=== PATIENT | female | born 1985 | race African-American/Black ===

== ENCOUNTER 2017-12-22 16:17 | Emergency (ER) | payer OTHER ==
[2017-12-22 16:29] VITALS: BP 105/74; PULSE 100; TEMP 99.1; BMI 32.5
--- NOTE | 2017-12-22 18:12 | PDOC ---
History of Present Illness - General Chief Complaint: Injury Stated Complaint: LEFT HAND INJURY Time Seen by Provider: 12/22/17 18:11 History Source: Patient Exam Limitations: No Limitations - History of Present Illness Initial Comments: 12/22/17 19:44 32 yo F comes in c/o L 4th finger injury after hitting it on the ground accidentally, denies any head injury, no LOC, no pain/injury anywhere else. No numbness/tingling, no weakness, no sensory deficits, no wrist/hand pain, no skin breaks, no other complaints today Past History - Past Medical History Allergies/Adverse Reactions: Allergies Allergy/AdvReac Type Severity Reaction Status Date / Time No Known Allergies Allergy Verified 12/22/17 16:25 Home Medications: Ambulatory Orders NK [No Known Home Medication] 12/22/17 COPD: No - Suicide/Smoking/Psychosocial Hx Smoking History: Current every day smoker Have you smoked in the past 12 months: Yes Number of Cigarettes Smoked Daily: 10 Information on smoking cessation initiated: Yes 'Breaking Loose' booklet given: 12/22/17 Hx Alcohol Use: No Drug/Substance Use Hx: No Substance Use Type: None Review of Systems - Review of Systems Able to Perform ROS?: Yes Constitutional: No: Chills, Fever, Malaise, Night Sweats HEENTM: No: Eye Pain, Recent change in vision, Throat Pain Respiratory: No: Cough, Shortness of Breath Cardiac (ROS): No: Chest Pain, Palpitations, Chest Tightness ABD/GI: No: Diarrhea, Nausea, Vomiting, Abdominal cramping : No: Dysuria, Hematuria Musculoskeletal: No: Back Pain Integumentary: No: Rash Neurological: No: Headache, Numbness, Dizziness Psychiatric: No: Change in Appetite Endocrine: No: Unexplained Weight Loss *Physical Exam - Vital Signs Last Vital Signs Temp Pulse Resp BP Pulse Ox 99.1 F 100 H 18 105/74 100 12/22/17 16:26 12/22/17 16:26 12/22/17 16:26 12/22/17 16:26 12/22/17 16:26 - Physical Exam General Appearance: Yes: Nourished. No: Apparent Distress HEENT: positive: RADHA, Normal Voice. negative: Pale Conjunctivae, Scleral Icterus (R), Scleral Icterus (L) Neck: positive: Supple. negative: Decreased range of motion Respiratory/Chest: negative: Respiratory Distress, Accessory Muscle Use Cardiovascular: positive: Regular Rhythm, Regular Rate Musculoskeletal: positive: Normal Inspection. negative: Decreased Range of Motion Extremity: positive: Normal Capillary Refill, Other (L 4th finger with diffuse swelling, and purplish discoloration, (+)tenderness to middle phalanx, FROM at 4th MCP and DIP actively and against resistance. Able to range at PIP but limited due to pain. normal cap refill, subjective numbness at middle phalanx volarly, full sensory function otherwise). negative: Pedal Edema Integumentary: positive: Normal Color, Dry. negative: Jaundice, Rash Neurologic: positive: Fully Oriented, Alert, Normal Mood/Affect Procedures - Splinting Splint Location: Left: Finger (4th) Pre-Proc Neuro Vasc Exam: normal Pre-Made Type: metal Splint Type: Yes: Finger Post-Proc Neuro Vasc Exam: normal Medical Decision Making - Medical Decision Making 12/22/17 19:57 32 yo F w/ L 4th finger injury. Xray done and shows a fracture of the middle phalanx, non displaced. Pt placed in a FInger splint. She will follow up with ortho/hand this week. Return for worsening/concerning symtpoms including numbness/tingling/weakness... *DC/Admit/Observation/Transfer Diagnosis at time of Disposition: Finger fracture, left Qualifiers: Encounter type: initial encounter Finger: ring finger Fracture type: closed Phalanx: middle - Discharge Dispostion Disposition: HOME Condition at time of disposition: Stable Decision to Admit order: No - Referrals Referrals: Garcia Green MD [Staff Physician] - - Patient Instructions Additional Instructions: Keep the splint on at all times and call on Sunday to make an appointment with the hand surgeon. Return for worsening/concerning symptoms including numbness/ tingling/weakness/change in skin color/temperature - Post Discharge Activity
[2017-12-22] MEDS ORDERED: ACETAMINOPHEN 325 MG TABLET (FP) PO ONE (18:15)
[2017-12-22] MEDS ORDERED: ACETAMINOPHEN 325 MG TABLET (FP) ONE (18:17)
== END 2017-12-22 19:44 | disposition home or self-care (01) ==
LOC: JERFT 16:17
PROC: 2W3KX1Z Immobilization of Left Finger using Splint (ICD-10-PCS; principal; 2017-12-22)
DX: S62.655A Nondisplaced fracture of middle phalanx of left ring finger, initial encounter for closed fracture (principal); W03.XXXA Other fall on same level due to collision with another person, initial encounter; Y93.89 Activity, other specified; Y92.89 Other specified places as the place of occurrence of the external cause; Y99.8 Other external cause status
CPT/HCPCS: 29130; 73140-TC-LT-FY; 99281-25

== ENCOUNTER 2018-08-09 16:03 | Emergency (ER) | payer OTHER | END 2018-08-09 16:38 | disposition home or self-care (01) | LOC: JERFT 16:03 ==

== ENCOUNTER 2018-08-18 14:47 | Emergency (ER) | payer SELFPAY, OTHER | END 2018-08-18 16:05 | disposition home or self-care (01) | LOC: JER 14:47 → JERFT 16:05 ==

== ENCOUNTER 2020-06-11 12:08 | Emergency (ER) | payer OTHER ==
[2020-06-11 12:18] VITALS: BP 136/88; PULSE 77; TEMP 98.6; BMI 32.1
[2020-06-11] MEDS ORDERED: KETOROLAC TROMETHAMINE 60 MG/2 ML VIAL IM ONE (12:54)
[2020-06-11] MEDS ORDERED: KETOROLAC TROMETHAMINE 30 MG/1 ML VIAL IM ONE (12:55)
[2020-06-11] MEDS ORDERED: KETOROLAC TROMETHAMINE 30 MG/1 ML VIAL ONE (12:56)
== END 2020-06-11 13:02 | disposition home or self-care (01) ==
LOC: JERFT 12:08
PROC: 3E0233Z Introduction of Anti-inflammatory into Muscle, Percutaneous Approach (ICD-10-PCS; principal; 2020-06-11)
DX: K02.9 Dental caries, unspecified (principal); K08.89 Other specified disorders of teeth and supporting structures
CPT/HCPCS: 99284-25

== ENCOUNTER 2021-01-14 14:45 | Emergency (ER) | payer OTHER ==
[2021-01-14 15:05] VITALS: BP 124/88; PULSE 78; TEMP 98; BMI 33.8
[2021-01-14 16:11] LABS: CHLORIDE 108 mmol/L (98-107); SODIUM 142 mmol/L (136-145)
[2021-01-14 16:13] LABS: CALCIUM 8.7 mg/dL (8.5-10.1)
[2021-01-14 16:14] LABS: ALBUMIN 3.6 g/dl (3.4-5.0); ANION GAP 6 MMOL/L (8-16); BLOOD UREA NITROGEN 6.1 mg/dL (7-18); CO2 27 mmol/L (21-32); GLUCOSE,RANDOM 127 mg/dL (74-106)
[2021-01-14 16:18] LABS: CREATININE 0.9 mg/dL (0.55-1.3); SGOT/AST 16 U/L (15-37); SGPT/ALT 23 U/L (13-61)
[2021-01-14 16:20] LABS: ALK PHOS 83 U/L (45-117); BILIRUBIN,TOTAL 0.2 mg/dL (0.2-1); TOT PROT 7.2 g/dl (6.4-8.2)
[2021-01-14 16:21] LABS: BASO % 0.5 % (0-2.0); EOS % 2.6 % (0-4.5); HEMATOCRIT 39.2 % (32.4-45.2); HEMOGLOBIN 13.6 GM/dL (10.7-15.3); LYMPH % 38.7 % (8-40); MCH 28.9 pg (25.7-33.7); MCHC 34.8 g/dl (32.0-36.0); MEAN CELL VOLUME 83.2 fl (80-96); MEAN PLT VOLUME 7.7 fl (7.5-11.1); MONO % 5.6 % (3.8-10.2); NEUT % 52.6 % (42.8-82.8); PLATELET COUNT 358 10^3/uL (134-434); RBC 4.71 M/mm3 (3.60-5.2); RDW 15.1 % (11.6-15.6); WHITE BLOOD COUNT 10.7 K/mm3 (4.0-10.0)
[2021-01-14 17:42] LABS: EPI CELLS 19 /uL (0-25.1); HYALINE CASTS 1 /uL (0-3.1); PH,URINE 5.5 (5.0-8.0); URINE APPEARANCE TURBID; URINE BILIRUBIN NEGATIVE (NEGATIVE); URINE COLOR DK YELLOW; URINE GLUCOSE (UA) NEGATIVE (NEGATIVE); URINE KETONE TRACE (NEGATIVE); URINE LEUK ESTERASE NEGATIVE (NEGATIVE); URINE NITRITE NEGATIVE (NEGATIVE); URINE PROTEIN TRACE (NEGATIVE); URINE WBC 12 /uL (0-25.8)
[2021-01-14 18:19] LABS: URINE RBC 45.2 /uL (0-23.9)
[2021-01-14 18:20] LABS: URINE BACTERIA 107.7 /uL (0-1359); URINE CRYSTALS MANY /hpf
== END 2021-01-14 18:32 ==
LOC: JER 14:45
DX: N93.9 Abnormal uterine and vaginal bleeding, unspecified (principal)
CPT/HCPCS: 36415; 76817-TC; 80053; 81003; 84702; 85025; 86850; 86900; 86901; 87086; 99284-25

== ENCOUNTER 2021-08-03 23:23 | Emergency (ER) | payer OTHER ==
[2021-08-03 23:27] VITALS: BP 134/84; PULSE 103; TEMP 98.4; BMI 34.4
[2021-08-04] MEDS ORDERED: RABIES IMMUNE GLOBULIN 300 UNITS/1 ML VIAL IM ONE (00:25)
[2021-08-04] MEDS ORDERED: DIPHTH,PERTUSS(ACELL),TET 0.5 ML DISP.SYRIN IM ONE ×2 (00:25→00:36)
[2021-08-04] MEDS ORDERED: RABIES VACCINE (PCEC)/PF 2.5 UNIT/VIAL IM ONE ×2 (00:28→00:36)
[2021-08-04] MEDS ORDERED: AMOX TR/POT CLAV 875MG/125MG TABLETS (FP) PO ONE (01:18)
[2021-08-04] MEDS ORDERED: AMOX TR/POT CLAV 875MG/125MG TABLETS (FP) ONE (01:33)
== END 2021-08-04 02:02 | disposition home or self-care (01) ==
LOC: JER 23:23
PROC: 3E0234Z Introduction of Serum, Toxoid and Vaccine into Muscle, Percutaneous Approach (ICD-10-PCS; principal; 2021-08-04)
PROC: 3E0234Z Introduction of Serum, Toxoid and Vaccine into Muscle, Percutaneous Approach (ICD-10-PCS; 2021-08-04)
DX: S51.852A Open bite of left forearm, initial encounter (principal); Z29.14 Encounter for prophylactic rabies immune globulin; W54.0XXA Bitten by dog, initial encounter; Y92.9 Unspecified place or not applicable
CPT/HCPCS: 90375; 90471; 90675; 90715; 99283-25

== ENCOUNTER 2021-08-07 17:12 | Emergency (ER) | payer OTHER ==
[2021-08-07] MEDS ORDERED: RABIES VACCINE (PCEC)/PF 2.5 UNIT/VIAL IM ONE ×2 (17:19→17:37)
[2021-08-07 17:20] VITALS: BP 102/71; PULSE 104; TEMP 98; BMI 34.4
== END 2021-08-07 17:51 | disposition home or self-care (01) ==
LOC: JER 17:12
PROC: 3E0234Z Introduction of Serum, Toxoid and Vaccine into Muscle, Percutaneous Approach (ICD-10-PCS; principal; 2021-08-07)
DX: Z29.14 Encounter for prophylactic rabies immune globulin (principal)
CPT/HCPCS: 90675; 99284-25; G0009

== ENCOUNTER 2021-08-11 16:47 | Emergency (ER) | payer OTHER ==
[2021-08-11 17:05] VITALS: BP 124/89; PULSE 90; TEMP 99.2; BMI 34.4
[2021-08-11] MEDS ORDERED: RABIES VACCINE (PCEC)/PF 2.5 UNIT/VIAL IM ONE ×2 (19:48→19:52)
== END 2021-08-11 20:15 | disposition home or self-care (01) ==
LOC: JERFT 16:47 → JER 16:47 → JERFT 20:15
PROC: 3E0234Z Introduction of Serum, Toxoid and Vaccine into Muscle, Percutaneous Approach (ICD-10-PCS; principal; 2021-08-11)
DX: Z29.14 Encounter for prophylactic rabies immune globulin (principal)
CPT/HCPCS: 90675; 99284-25

== ENCOUNTER 2021-08-18 21:33 | Emergency (ER) | payer OTHER ==
[2021-08-18] MEDS ORDERED: RABIES VACCINE (PCEC)/PF 2.5 UNIT/VIAL IM ONE ×2 (21:36→21:41)
[2021-08-18 21:37] VITALS: BP 128/84; PULSE 83; TEMP 98.1; BMI 34.4
== END 2021-08-18 21:52 | disposition home or self-care (01) ==
LOC: JER 21:33 → JERFT 21:33
PROC: 3E023GC Introduction of Other Therapeutic Substance into Muscle, Percutaneous Approach (ICD-10-PCS; principal; 2021-08-18)
DX: S51.852A Open bite of left forearm, initial encounter (principal); W54.0XXA Bitten by dog, initial encounter; Z20.3 Contact with and (suspected) exposure to rabies
CPT/HCPCS: 90675; 99283-25

== ENCOUNTER 2022-05-22 20:53 | Emergency (ER) | payer OTHER ==
[2022-05-22 21:02] VITALS: BP 123/88; PULSE 85; RESP 20; TEMP 98.9; BMI 32.8
[2022-05-22] MEDS ORDERED: IBUPROFEN 600 MG TABLET (FP) PO ONE (21:45)
== END 2022-05-22 22:25 | disposition home or self-care (01) ==
LOC: JER 20:53 → JERFT 20:53
DX: S46.911A Strain of unspecified muscle, fascia and tendon at shoulder and upper arm level, right arm, initial encounter (principal); X50.1XXA Overexertion from prolonged static or awkward postures, initial encounter
CPT/HCPCS: 99283-25

== ENCOUNTER 2022-08-08 20:56 | Emergency (ER) | payer OTHER ==
[2022-08-08 21:19] VITALS: RESP 18; BMI 31.5
[2022-08-09] MEDS ORDERED: IBUPROFEN 600 MG TABLET (FP) PO ONE ×2 (00:50)
[2022-08-09 02:15] VITALS: BP 130/88; PULSE 87; TEMP 98.8
== END 2022-08-09 02:15 | disposition home or self-care (01) ==
LOC: JER 20:56
DX: M79.601 Pain in right arm (principal)
CPT/HCPCS: 73030-TC-RT-FY; 99283-25